=== PATIENT | male | born 1960 | race Caucasian/White ===

== ENCOUNTER 2018-09-25 18:32 | Observation (INO) | payer MEDICAID, MEDICARE, OTHER ==
[~2018-09-25] VITALS: Ht 177.8 cm; Wt 79.5 kg
[~2018-09-25 18:32] MED LIST: ALBU2.5V8 IH; ALBU2.5V8 INH; ASPI-482 PO; BENZ2AMP4 IJ; CICL6.1H3 IH; DIVA250T4 PO; DIVA500T2 PO; FURO-68 PO; MIRT30TA PO; MONT10TA9 PO; NITR0.4T SL; PANT40TA3 PO; POTA20TA12 PO; SIME80TA14 PO; SIMV10TA PO; [UNRECOGNIZED DRUG - CODE] IM
[2018-09-25 19:01] LABS: BASO % 1 % (0-3); EOS # 0.1 x10^3/uL (0.0-0.7); EOS % 1 % (0-3); HEMATOCRIT 42.4 % (39.0-53.0); HEMOGLOBIN 13.9 g/dL (13.0-17.5); LYMPH # 1.9 x10^3/uL (1.0-4.8); LYMPH % 28 % (24-48); MEAN CORPUSCULAR HEMOGLOBIN 30 pg (25-35); MEAN CORPUSCULAR HGB CONC 33 g/dL (31-37); MEAN CORPUSCULAR VOLUME 90 fL (79-100); MONO # 0.6 x10^3/uL (0.0-1.1); MONO % 8 % (0-9); NEUT # 4.3 x10^3uL (1.8-7.7); NEUT % 62 % (31-73); PLATELET COUNT 132 x10^3/uL (140-400); RED BLOOD COUNT 4.71 x10^6/uL (4.30-5.70); RED CELL DISTRIBUTION WIDTH 14.9 % (11.5-14.5); WHITE BLOOD COUNT 6.9 x10^3/uL (4.0-11.0)
--- NOTE | 2018-09-25 19:09 | PHYS DOC ---
Past Medical History Past Medical History: CAD, Seizure Additional Past Medical Histor: "blood clots" Past Surgical History: Appendectomy Additional Past Surgical Histo: AVM, IVC filter, right lower extremity vascular procedure performed at Alcohol Use: None Drug Use: None Adult General Chief Complaint Chief Complaint: CHEST PAIN HPI HPI Patient is a 57 year old male who presents with chest pain that started at approximately 3:00 this afternoon. Radiates into his left shoulder. This is similar to his chest discomfort when he had previous heart attack in 2006. There has been no nausea or vomiting, no diaphoresis. Patient was given aspirin and nitroglycerin prior to arrival which did improve his pain. Patient also notes that he has a [place] filter but no prior cardiac stent. There is no respirophasic component to this discomfort. Patient reports is both sharp and burning in nature, at worst severe, currently mild in intensity. Nothing seems to make the discomfort worse. Patient did not walk since the onset of pain to see if there was any worsening with exertion.[] Review of Systems Review of Systems Constitutional: Denies fever or chills [] Eyes: Denies change in visual acuity, redness, or eye pain [] HENT: Denies nasal congestion or sore throat [] Respiratory: Denies cough or shortness of breath [] Cardiovascular: No additional information not addressed in HPI [] GI: Denies abdominal pain, nausea, vomiting, bloody stools or diarrhea [] : Denies dysuria or hematuria [] Musculoskeletal: Denies back pain or joint pain [] Integument: Denies rash or skin lesions [] Neurologic: Denies headache, focal weakness or sensory changes [] Endocrine: Denies polyuria or polydipsia [] All other systems were reviewed and found to be within normal limits, except as documented in this note. Current Medications Current Medications Current Medications Medications (Trade) Dose Ordered Sig/Dixie Start Time Stop Time Status Last Admin Dose Admin Nitroglycerin (Nitro-Bid Oint) 0.5 inch 1X ONCE 09/25/18 19:30 09/25/18 19:31 DC 09/25/18 19:27 0.5 INCH Allergies Allergies Allergies Coded Allergies Type Severity Reaction Last Updated Verified Penicillins Allergy Intermediate 08/18/15 Yes methadone Allergy Intermediate 08/18/15 Yes morphine Allergy Intermediate 08/18/15 Yes sulfamethoxazole Allergy Intermediate 08/18/15 Yes trimethadione Allergy Intermediate 08/18/15 Yes Physical Exam Physical Exam Constitutional: Well developed, well nourished, no acute distress, non-toxic appearance. [] HENT: Normocephalic, atraumatic, bilateral external ears normal, oropharynx moist, no oral exudates, nose normal. [] Eyes: PERRLA, EOMI, conjunctiva normal, no discharge. [] Neck: Normal range of motion, no tenderness, supple, no stridor. [] Cardiovascular:Heart rate regular rhythm, no murmur [] Lungs & Thorax: Bilateral breath sounds clear to auscultation [] Abdomen: Bowel sounds normal, soft, no tenderness, no masses, no pulsatile masses. [] Skin: Warm, dry, no erythema, no rash. [] Back: No tenderness, no CVA tenderness. [] Extremities: No tenderness, no cyanosis, no clubbing, ROM intact, no edema. Right leg is bandaged from recent vascular procedure performed at [facility][] Neurologic: Alert and oriented X 3, normal motor function, normal sensory function, no focal deficits noted. [] Psychologic: Affect normal, judgement normal, mood normal. [] Current Patient Data Vital Signs Vital Signs Date Time Temp Pulse Resp B/P (MAP) Pulse Ox O2 Delivery O2 Flow Rate FiO2 09/25/18 19:32 72 105/80 (88) 98 Room Air 09/25/18 18:32 98.1 16 98.1 Lab Values Laboratory Tests Test 09/25/18 18:40 White Blood Count 6.9 x10^3/uL (4.0-11.0) Red Blood Count 4.71 x10^6/uL (4.30-5.70) Hemoglobin 13.9 g/dL (13.0-17.5) Hematocrit 42.4 % (39.0-53.0) Mean Corpuscular Volume 90 fL (79-100) Mean Corpuscular Hemoglobin 30 pg (25-35) Mean Corpuscular Hemoglobin Concent 33 g/dL (31-37) Red Cell Distribution Width 14.9 % (11.5-14.5) H Platelet Count 132 x10^3/uL (140-400) L Neutrophils (%) (Auto) 62 % (31-73) Lymphocytes (%) (Auto) 28 % (24-48) Monocytes (%) (Auto) 8 % (0-9) Eosinophils (%) (Auto) 1 % (0-3) Basophils (%) (Auto) 1 % (0-3) Neutrophils # (Auto) 4.3 x10^3uL (1.8-7.7) Lymphocytes # (Auto) 1.9 x10^3/uL (1.0-4.8) Monocytes # (Auto) 0.6 x10^3/uL (0.0-1.1) Eosinophils # (Auto) 0.1 x10^3/uL (0.0-0.7) Basophils # (Auto) 0.0 x10^3/uL (0.0-0.2) Prothrombin Time 13.4 SEC (11.7-14.0) Prothrombin Time INR 1.1 (0.8-1.1) D-Dimer (Ginny) < 0.27 ug/mlFEU Sodium Level 139 mmol/L (136-145) Potassium Level 4.7 mmol/L (3.5-5.1) Chloride Level 103 mmol/L (98-107) Carbon Dioxide Level 27 mmol/L (21-32) Anion Gap 9 (6-14) Blood Urea Nitrogen 15 mg/dL (8-26) Creatinine 0.8 mg/dL (0.7-1.3) Estimated GFR (Cockcroft-Gault) 98.9 BUN/Creatinine Ratio 19 (6-20) Glucose Level 97 mg/dL (70-99) Calcium Level 8.6 mg/dL (8.5-10.1) Magnesium Level 1.7 mg/dL (1.8-2.4) L Total Bilirubin 0.2 mg/dL (0.2-1.0) Aspartate Amino Transferase (AST) 12 U/L (15-37) L Alanine Aminotransferase (ALT) 15 U/L (16-63) L Alkaline Phosphatase 61 U/L (46-116) Troponin I Quantitative < 0.017 ng/mL (0.000-0.055) EQ-Iaj-N-Type Natriuretic Peptide 24 pg/mL (0-124) Total Protein 6.0 g/dL (6.4-8.2) L Albumin 3.2 g/dL (3.4-5.0) L Albumin/Globulin Ratio 1.1 (1.0-1.7) Lipase 135 U/L (73-393) Laboratory Tests 09/25/18 18:40 Laboratory Tests 09/25/18 18:40 EKG EKG EKG shows a sinus rhythm at 71 bpm, normal axis, QTC of 378 ms, no ST elevations. No old EKG is available for comparison. This was interpreted by me at 1832[] Radiology/Procedures Radiology/Procedures Chest X-ray showed no infiltrate, no effusion, no pneumothorax[] Course & Med Decision Making Course & Med Decision Making Pertinent Labs and Imaging studies reviewed. (See chart for details) ED course: Patient arrived, was placed in bed, and tolerated exam well. He had nitroglycerin paste administered which improved his discomfort. Due to his history of previous coronary disease, consultation was made with hospitalist service for admission and they graciously accepted. Patient was admitted in improved condition. Findings were discussed with patient who voiced understanding. Medical decision making: Patient with a known history of coronary disease with chest pain, concerned about possibility of acute coronary syndrome. Patient does not have a STEMI. No evidence of pulmonary embolism given the normal d- dimer as well as previous history of Daisha filter by report. No evidence of pneumonia, pneumothorax, esophageal rupture, nor thoracic aneurysm dissection. He is being admitted for further evaluation and treatment.[] Dragon Disclaimer Dragon Disclaimer This electronic medical record was generated, in whole or in part, using a voice recognition dictation system. Departure Departure Impression: Primary Impression: Chest pain Disposition: ADMITTED INPATIENT Admitting Physician: Kia Posey Condition: IMPROVED Referrals: MOISÉS HOWELL (PCP) Problem Qualifiers Primary Impression: Chest pain Chest pain type: unspecified Qualified Codes: R07.9 - Chest pain, unspecified DEBI LAKHANI DO Sep 25, 2018 19:09
[2018-09-25 19:10] LABS: PROTHROMBIN TIME PATIENT 13.4 SEC (11.7-14.0)
[2018-09-25 19:14] LABS: CALCIUM 8.6 mg/dL (8.5-10.1); CREATININE 0.8 mg/dL (0.7-1.3); GFR 98.9; POTASSIUM 4.7 mmol/L (3.5-5.1)
[2018-09-25] MEDS ORDERED: NITROGLYCERIN OINT 1 GM PACKET. TP ONE ×2 (19:15→19:30)
[2018-09-25 19:20] LABS: ALBUMIN 3.2 g/dL (3.4-5.0); ALBUMIN/GLOBULIN RATIO 1.1 (1.0-1.7); MAGNESIUM 1.7 mg/dL (1.8-2.4); TOTAL BILIRUBIN 0.2 mg/dL (0.2-1.0)
[2018-09-25] MEDS ORDERED: ACETAMINOPHEN 325 MG TABLET. PO PRN (20:30)
[2018-09-25] MEDS ORDERED: ONDANSETRON PF 4 MG/2 ML VIAL. IV PRN (20:30)
[2018-09-25] MEDS ORDERED: NITROGLYCERIN SUBLINGUAL 0.4 MG BOTTLE OF 25. SL PRN ×2 (20:30→22:30)
[2018-09-25 21:50] VITALS: BP 133/72
[2018-09-25] MEDS ORDERED: ATOR40TA59 PO (22:17)
[2018-09-25] MEDS ORDERED: LEVO75TA5 PO (22:17)
[2018-09-25] MEDS ORDERED: DIVA-53 PO (22:17)
[2018-09-25] MEDS ORDERED: HALO5SYR IM (22:17)
[2018-09-25] MEDS ORDERED: MIRT45TA58 PO (22:17)
[2018-09-25 22:40] VITALS: BP 106/73
[2018-09-25] MEDS ORDERED: DIVALPROEX DELAYED RELEASE 500 MG TABLET.DR. PO ONE (22:45)
[2018-09-25] MEDS ORDERED: MIRTAZAPINE 15 MG TABLET PO ONE (22:45)
[2018-09-25] MEDS ORDERED: MIRTAZAPINE 15 MG TABLET PO SCH (23:00)
[2018-09-25] MEDS ORDERED: BENZTROPINE MESYLATE 1 MG TABLET. PO ONE (23:00)
[2018-09-25] MEDS ORDERED: ATORVASTATIN CALCIUM 40 MG TABLET. PO ONE (23:00)
[2018-09-25] MEDS: DIVALPROEX DELAYED RELEASE 500 MG TABLET.DR. PO SCH (23:09)
[2018-09-25] MEDS: IV NORMAL SALINE 1000ML BAG 1,000 ML IV SCH (23:11)
[2018-09-26] VITALS (14 sets, daily range): BP systolic 102–135; BP diastolic 69–92
--- NOTE | 2018-09-26 00:12 | RAD ---
EXAM: AP View of the chest DATE: 09/25/2018 7:18 PM INDICATION: MIDSTERNAL CHEST PAIN X1 DAY COMPARISON: No Prior FINDINGS: The heart is not enlarged. Mediastinal and hilar contours are normal. No focal parenchymal airspace opacity. No pleural effusion or pneumothorax. IMPRESSION: No evidence for acute cardiac pulmonary process. Electronically signed by: Sergio Marshall MD (09/26/2018 12:09 AM) [facility]
--- NOTE | 2018-09-26 05:14 | EKG ---
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
--- NOTE | 2018-09-26 05:18 | EKG ---
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
--- NOTE | 2018-09-26 05:19 | EKG ---
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
[2018-09-26] MEDS ORDERED: LEVOTHYROXINE 75 MCG TABLET PO SCH (06:00)
[2018-09-26] MEDS ORDERED: PANTOPRAZOLE 40 MG TABLET.DR. PO SCH (07:30)
[2018-09-26] MEDS ORDERED: ASPIRIN ENTERIC COATED 81 MG TABLET.DR. PO SCH (08:00)
[2018-09-26] MEDS: IV NORMAL SALINE 1000ML BAG 1,000 ML IV SCH ×2 (08:03→12:16)
[2018-09-26] MEDS: DIVALPROEX DELAYED RELEASE 500 MG TABLET.DR. PO SCH ×2 (08:04→15:44)
[2018-09-26 08:16] LABS: CALCIUM 8.7 mg/dL (8.5-10.1); CREATININE 0.7 mg/dL (0.7-1.3); GFR 115.4; POTASSIUM 4.4 mmol/L (3.5-5.1)
[2018-09-26 08:21] LABS: CHOLESTEROL/HDL RATIO 2.7
--- NOTE | 2018-09-26 08:21 | PDOC2 ---
[facility] 09/26/18 0821: CARDIAC CONSULT DATE OF CONSULT Date of Consult DATE: 09/26/18 TIME: 08:14 REASON FOR CONSULT Reason for Consult: Chest pain , Hx of CAD REFERRING PHYSICIAN Referring Physician: Dameon SOURCE Source: Chart review, Patient HISTORY OF PRESENT ILLNESS HISTORY OF PRESENT ILLNESS This is a pleasant 57 yo male admitted for complains of chest pain. Described it as midchest pressure radiating with heviness to left arm. Also with some SOA and mild diaphoresis but no palpiations nor nausea or vomiting. No recent injuries or altercations in the correctional facility. No hx of PUD. This occurred while he was getting coffee and it was unrelenting initially promting a total of 6 NTG in the span of 8 hours and currently CP free with NTG paste in place. He does have CAD and was told with his [facility] in 2006 that he has 40% blockage on one of his vessel nothing to xi. His last stress test was 3 yrs ago. 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) Pulmonary: COPD, Other ("blood clots") CENTRAL NERVOUS SYSTEM: CVA, Seizure GI: GERD Heme/Onc: No pertinent hx Hepatobiliary: No pertinent hx Psych: Schizophrenia Musculoskeletal: Osteoarthritis Rheumatologic: No pertinent hx Infectious disease: No pertinent hx ENT: No pertinent hx Renal/: No pertinent hx Endocrine: Hypothyroidism Dermatology: No pertinent hx PAST SURGICAL HISTORY Past Surgical History: Appendectomy, Other (IVC filter placement) FAMILY HISTORY Family History: Coronary Artery Disease (father) SOCIAL HISTORY Smoke: Quit ALCOHOL: none Drugs: None Lives: Alone (correctional facility) CURRENT MEDICATIONS CURRENT MEDICATIONS Current Medications Medications (Trade) Dose Ordered Sig/Dixie Route PRN Reason Start Time Stop Time Status Last Admin Dose Admin Nitroglycerin (Nitro-Bid Oint) 0.5 inch 1X ONCE TP 09/25/18 19:30 09/25/18 19:31 DC 09/25/18 19:27 Sodium Chloride 1,000 ml @ 125 mls/hr Q8H IV 09/25/18 20:16 09/26/18 20:15 09/26/18 08:03 Aspirin (Ecotrin) 81 mg DAILYWBKFT PO 09/26/18 08:00 09/26/18 08:03 Levothyroxine Sodium (Synthroid) 75 mcg DAILY06 PO 3/26/19 06:00 09/26/18 06:07 Nitroglycerin (Nitrostat) 0.4 mg PRN Q5MIN PRN SL CHEST PAIN 09/25/18 22:30 09/26/18 03:17 Pantoprazole Sodium (Protonix) 40 mg DAILYAC PO 09/26/18 07:30 09/26/18 08:03 Divalproex Sodium (Depakote) 500 mg TID PO 09/25/18 23:00 09/26/18 08:04 Mirtazapine (Remeron) 45 mg QHS PO 09/25/18 23:00 09/25/18 23:10 Montelukast Sodium (Singulair) 10 mg DAILY PO 09/26/18 09:00 09/26/18 08:04 Atorvastatin Calcium (Lipitor) 40 mg 1X ONCE PO 09/25/18 23:00 09/25/18 23:01 DC 09/25/18 23:09 Benztropine Mesylate (Cogentin) 1 mg 1X ONCE PO 09/25/18 23:00 09/25/18 23:01 DC 09/25/18 23:08 ALLERGIES ALLERGIES: Coded Allergies: Penicillins (Verified Allergy, Intermediate, 08/18/15) methadone (Verified Allergy, Intermediate, 08/18/15) morphine (Verified Allergy, Intermediate, 08/18/15) sulfamethoxazole (Verified Allergy, Intermediate, 08/18/15) trimethadione (Verified Allergy, Intermediate, 08/18/15) ROS Review of System 14 point ROS evlauated with pertinent positives noted per HPI PHYSICAL EXAM General: Alert, Oriented X3, Cooperative, No acute distress HEENT: Atraumatic, Mucous membr. moist/pink Lungs: Clear to auscultation, Normal air movement Heart: Regular rate (SR), Normal S1, Normal S2, No murmurs Abdomen: Soft, No tenderness Extremities: No cyanosis, Other (Trace LE edema to bilateral LE ) Skin: No breakdown, No significant lesion Neuro: Normal speech, Sensation intact Psych/Mental Status: Mental status NL, Mood NL MUSCULOSKELETAL: Osteoarthritic changes both hands VITALS VITALS Vital Signs Date Time Temp Pulse Resp B/P (MAP) Pulse Ox O2 Delivery O2 Flow Rate FiO2 09/26/18 07:00 98.0 72 18 133/92 (106) 96 Room Air 98.0 LABS Lab: Laboratory Tests Test 09/25/18 18:40 09/26/18 00:15 09/26/18 06:30 White Blood Count 6.9 x10^3/uL (4.0-11.0) Red Blood Count 4.71 x10^6/uL (4.30-5.70) Hemoglobin 13.9 g/dL (13.0-17.5) Hematocrit 42.4 % (39.0-53.0) Mean Corpuscular Volume 90 fL (79-100) Mean Corpuscular Hemoglobin 30 pg (25-35) Mean Corpuscular Hemoglobin Concent 33 g/dL (31-37) Red Cell Distribution Width 14.9 % (11.5-14.5) Platelet Count 132 x10^3/uL (140-400) Neutrophils (%) (Auto) 62 % (31-73) Lymphocytes (%) (Auto) 28 % (24-48) Monocytes (%) (Auto) 8 % (0-9) Eosinophils (%) (Auto) 1 % (0-3) Basophils (%) (Auto) 1 % (0-3) Neutrophils # (Auto) 4.3 x10^3uL (1.8-7.7) Lymphocytes # (Auto) 1.9 x10^3/uL (1.0-4.8) Monocytes # (Auto) 0.6 x10^3/uL (0.0-1.1) Eosinophils # (Auto) 0.1 x10^3/uL (0.0-0.7) Basophils # (Auto) 0.0 x10^3/uL (0.0-0.2) Prothrombin Time 13.4 SEC (11.7-14.0) Prothromb Time International Ratio 1.1 (0.8-1.1) D-Dimer (Ginny) < 0.27 ug/mlFEU Sodium Level 139 mmol/L (136-145) Potassium Level 4.7 mmol/L (3.5-5.1) Chloride Level 103 mmol/L (98-107) Carbon Dioxide Level 27 mmol/L (21-32) Anion Gap 9 (6-14) Blood Urea Nitrogen 15 mg/dL (8-26) Creatinine 0.8 mg/dL (0.7-1.3) Estimated GFR (Cockcroft-Gault) 98.9 BUN/Creatinine Ratio 19 (6-20) Glucose Level 97 mg/dL (70-99) Calcium Level 8.6 mg/dL (8.5-10.1) Magnesium Level 1.7 mg/dL (1.8-2.4) Total Bilirubin 0.2 mg/dL (0.2-1.0) Aspartate Amino Transf (AST/SGOT) 12 U/L (15-37) Alanine Aminotransferase (ALT/SGPT) 15 U/L (16-63) Alkaline Phosphatase 61 U/L (46-116) Troponin I Quantitative < 0.017 ng/mL (0.000-0.055) < 0.017 ng/mL (0.000-0.055) < 0.017 ng/mL (0.000-0.055) MG-Lmh-Q-Type Natriuretic Peptide 24 pg/mL (0-124) Total Protein 6.0 g/dL (6.4-8.2) Albumin 3.2 g/dL (3.4-5.0) Albumin/Globulin Ratio 1.1 (1.0-1.7) Lipase 135 U/L (73-393) ASSESSMENT/PLAN ASSESSMENT/PLAN 1. Chest pain: UA features 2. Recent AVM repair to RLE: early september at [facility] 3. Hx of CAD/CVA 4. Hx of seizures: has not had any in a while. 5. Hx of DVT with IVC filter (still in placed in 2006) 6. HTN; controlled 7. HLP Recommendations TTE,lipids LHC today, risks and benefits discussed and agreebale to proceed. ASA, statin LESLY LAINEZ MD 09/26/18 1237: CARDIAC CONSULT ASSESSMENT/PLAN ASSESSMENT/PLAN Pt. seen and examined. Agree with above [employer] note. Plan for LHC today given unstable angina. ARCHANA MARIN APRN Sep 26, 2018 08:21 LESLY LAINEZ MD Sep 26, 2018 12:37
[2018-09-26] MEDS ORDERED: MONTELUKAST SODIUM 10 MG TABLET. PO SCH (09:00)
--- NOTE | 2018-09-26 09:10 | EKG ---
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
--- NOTE | 2018-09-26 11:02 | PDOC1 ---
History and Physical Date of Admission Date of Admission DATE: 09/26/18 TIME: 11:02 Identification/Chief Complaint Chief Complaint seen in er with severe chest pain that started at approximately 3:00 09/25 Radiates into his left shoulder. This is similar to his chest discomfort when he had previous heart attack in 2006. There has been no nausea or vomiting, no diaphoresis. Patient was given aspirin and nitroglycerin prior to arrival which did improve his pain. Patient also notes that he has a Daisha filter but no prior cardiac stent. There is no respirophasic component to this discomfort. Patient reports is both sharp and burning in nature, at worst severe History of Present Illness History of Present Illness Heart Failure Heart Failure: No If Yes, Newly Diagnosed: No PROCEDURE NARRATIVE INFORMED CONSENT: After explaining the risks and benefits of the procedure and alternatives, informed consent was obtained. The patient was brought electively to the cardiac catheterization lab. A timeout was performed confirming the patient's name, date of , procedure, and site of procedure. All necessary personnel were wearing the appropriate protective equipment and radiation monitor devices. (See nursing notes for medications administered). ACCESS: The right wrist was sterilely prepped and draped in the usual fashion. The right wrist was infiltrated with 1 mL of 2% lidocaine for subcutaneous anesthesia. A 6 Jordanian Terumo glide sheath was inserted into the right radial artery without difficulty. CORONARY ANGIOGRAPHY: Right and left coronary angiography was performed using a 6Fr TIG 4.0 catheter. Left ventricular end diastolic pressure was obtained with a pigtail catheter and pullback was performed after left ventriculography. All catheter exchanges and advancements were performed over a guidewire. CLOSURE: At case completion the right radial sheath was removed and a Terumo radial band was applied with 13 ml of air. COMPLICATIONS: The patient tolerated the procedure well and there were no immediate complications. FINDINGS: HEMODYNAMICS: LVEDP 10 mm Hg No gradient on LV to aortic pullback. AO: 128/78 LEFT VENTRICULOGRAM: EF 55% Anterobasal: Normal. Anterolateral: Normal Apical: Normal Diaphragmatic: Normal Posterobasal: Normal CORONARY ANGIOGRAPHY: LM is a large caliber vessel with normal angiographic appearance. LAD is a moderate caliber vessel with mild luminal irregularities of up to 20%. LCx is a moderate caliber non-dominant vessel with normal angiographic appearance. OM1 is a moderate caliber vessel with normal angiographic appearance. RCA is a large caliber dominant vessel with normal angiographic appearance. RPDA and RPL are moderate caliber vessels with normal angiographic appearance. Conclusion 1. Normal left sided filling pressures. 2. Normal LV systolic function. EF 55% 3. No significant coronary disease. 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) Pulmonary: COPD, Other ("blood clots") CENTRAL NERVOUS SYSTEM: CVA, Seizure GI: GERD Heme/Onc: No pertinent hx Hepatobiliary: No pertinent hx Psych: Schizophrenia Musculoskeletal: Osteoarthritis Rheumatologic: No pertinent hx Infectious disease: No pertinent hx ENT: No pertinent hx Renal/: No pertinent hx Endocrine: Hypothyroidism Dermatology: No pertinent hx Past Surgical History Past Surgical History: Appendectomy, Other (IVC filter placement) Family History Family History: Coronary Artery Disease (father) Social History Smoke: No ALCOHOL: none Drugs: None Current Medications Current Medications Current Medications Nitroglycerin (Nitro-Bid Oint) 1 inch 1X ONCE TP ; Start 09/25/18 at 19:15; Stop 09/25/18 at 19:24; Status DC Nitroglycerin (Nitro-Bid Oint) 0.5 inch 1X ONCE TP Last administered on at 19:27; Start 09/25/18 at 19:30; Stop 09/25/18 at 19:31; Status DC Ondansetron HCl (Zofran) 4 mg PRN Q8HRS PRN IV NAUSEA/VOMITING; Start 09/25/18 at 20:30; Stop 09/26/18 at 20:29 Sodium Chloride 1,000 ml @ 125 mls/hr Q8H IV Last administered on 09/26/18at 08 :03; Start 09/25/18 at 20:16; Stop 09/26/18 at 20:15 Acetaminophen (Tylenol) 650 mg PRN Q4HRS PRN PO FEVER; Start 09/25/18 at 20:30 ; Stop 09/26/18 at 20:29 Nitroglycerin (Nitrostat) 0.4 mg PRN Q5MIN PRN SL CHEST PAIN; Start 09/25/18 at 20:30; Stop 09/25/18 at 22:36; Status DC Aspirin (Ecotrin) 81 mg DAILYWBKFT PO Last administered on 09/26/18at 08:03; Start 09/26/18 at 08:00 Atorvastatin Calcium (Lipitor) 40 mg HS PO ; Start 09/26/18 at 21:00 Levothyroxine Sodium (Synthroid) 75 mcg DAILY06 PO Last administered on at 06:07; Start 09/26/18 at 06:00 Nitroglycerin (Nitrostat) 0.4 mg PRN Q5MIN PRN SL CHEST PAIN Last administered on 09/26/18at 03:17; Start 09/25/18 at 22:30 Pantoprazole Sodium (Protonix) 40 mg DAILYAC PO Last administered on 09/26/18at 08:03; Start 09/26/18 at 07:30 Divalproex Sodium (Depakote) 500 mg TID PO Last administered on 09/26/18at 08:04 ; Start 09/25/18 at 23:00 Haloperidol Lactate (Haldol Inj) 75 mg Q4WK IM ; Start 10/23/18 at 09:00 Mirtazapine (Remeron) 45 mg QHS PO Last administered on 09/25/18at 23:10; Start 09/25/18 at 23:00 Montelukast Sodium (Singulair) 10 mg DAILY PO Last administered on 09/26/18at 08 :04; Start 09/26/18 at 09:00 Divalproex Sodium (Depakote) 500 mg 1X ONCE PO ; Start 09/25/18 at 22:45; Stop 09/25/18 at 22:46; Status UNV Mirtazapine (Remeron) 45 mg 1X ONCE PO ; Start 09/25/18 at 22:45; Stop at 22:46; Status UNV Atorvastatin Calcium (Lipitor) 40 mg 1X ONCE PO Last administered on at 23:09; Start 09/25/18 at 23:00; Stop 09/25/18 at 23:01; Status DC Benztropine Mesylate (Cogentin) 1 mg 1X ONCE PO Last administered on at 23:08; Start 09/25/18 at 23:00; Stop 09/25/18 at 23:01; Status DC Active Scripts Active Reported Mirtazapine 45 Mg Tablet 1 Tab PO QHS Levothyroxine Sodium 75 Mcg Tablet 1 Tab PO DAILY Haloperidol Lactate 5 Mg/1 Ml Syringe 75 Mg IM Q4WK Divalproex Sodium 500 Mg Tablet.dr 1 Tab PO TID Atorvastatin Calcium 40 Mg Tablet 1 Tab PO DAILY Montelukast Sodium Tablet (Montelukast Sodium) 10 Mg Tablet 1 Tab PO DAILY Protonix (Pantoprazole Sodium) 40 Mg Tablet.dr 40 Mg PO DAILY Nitrostat (Nitroglycerin) 0.4 Mg Tab.subl 0.4 Mg SL PRN Q5MIN PRN Aspir 81 (Aspirin) 81 Mg Tablet.dr 81 Tab PO DAILY Alvesco (Ciclesonide) 6.1 Gm Hfa.aer.ad 6.1 Gm IH Proair Hfa Inhaler (Albuterol Sulfate) 8.5 Gm Hfa.aer.ad 1 Puff INH PRN Q6HRS PRN Proair Hfa Inhaler (Albuterol Sulfate) 8.5 Gm Hfa.aer.ad 2 Puff IH PRN Q4-6HRS Allergies Allergies: Coded Allergies: Penicillins (Verified Allergy, Intermediate, 08/18/15) methadone (Verified Allergy, Intermediate, 08/18/15) morphine (Verified Allergy, Intermediate, 08/18/15) sulfamethoxazole (Verified Allergy, Intermediate, 08/18/15) trimethadione (Verified Allergy, Intermediate, 08/18/15) ROS Review of System Review of Systems Review of Systems Constitutional: Denies fever or chills [] Eyes: Denies change in visual acuity, redness, or eye pain [] HENT: Denies nasal congestion or sore throat [] Respiratory: Denies cough or shortness of breath [] Cardiovascular: No additional information not addressed in HPI [] GI: Denies abdominal pain, nausea, vomiting, bloody stools or diarrhea [] : Denies dysuria or hematuria [] Musculoskeletal: Denies back pain or joint pain [] Integument: Denies rash or skin lesions [] Neurologic: Denies headache, focal weakness or sensory changes [] Endocrine: Denies polyuria or polydipsia [] 14 pt systems were reviewed and found to be within normal limits, except as documented . PSYCHOLOGICAL ROS: YES: Irritablity Gastrointestinal: No Nausea, No Vomiting, No Abdominal Pain, No Diarrhea, No Constipation, No Melena, No Hematochezia, No Other Neurological: No Behavorial Changes, No Bowel/Bladder ControlChng, No Confusion , No Dizziness, No Gait Disturbance, No Headaches, No Impaired Coord/balance, No Memory Loss, No Numbness/Tingling, No Seizures, No Speech Problems, No Tremors, No Visual Changes, No Weakness, No Other Physical Exam Physical Exam Physical Exam Physical Exam Constitutional: Well developed, well nourished, no acute distress, non-toxic appearance. [] HENT: Normocephalic, atraumatic, bilateral external ears normal, oropharynx moist, no oral exudates, nose normal. [] Eyes: PERRLA, EOMI, conjunctiva normal, no discharge. [] Neck: Normal range of motion, no tenderness, supple, no stridor. [] Cardiovascular:Heart rate regular rhythm, no murmur [] Lungs & Thorax: Bilateral breath sounds clear to auscultation [] Abdomen: Bowel sounds normal, soft, no tenderness, no masses, no pulsatile masses. [] Skin: Warm, dry, no erythema, no rash. [] Back: No tenderness, no CVA tenderness. [] Extremities: No tenderness, no cyanosis, no clubbing, ROM intact, no edema. Right leg is bandaged from recent vascular procedure performed at [] Neurologic: Alert and oriented X 3, normal motor function, normal sensory function, no focal deficits noted. [] Psychologic: Affect normal, judgement normal, mood normal. [] General: Alert, Oriented X3, Cooperative HEENT: Atraumatic Lungs: Clear to auscultation Heart: RRR Abdomen: Soft Vitals Vitals Vital Signs Date Time Temp Pulse Resp B/P (MAP) Pulse Ox O2 Delivery O2 Flow Rate FiO2 09/26/18 08:00 Room Air 09/26/18 07:00 98.0 72 18 133/92 (106) 96 98.0 Labs Labs Laboratory Tests Test 09/25/18 18:40 09/26/18 00:15 09/26/18 06:30 White Blood Count 6.9 x10^3/uL (4.0-11.0) Red Blood Count 4.71 x10^6/uL (4.30-5.70) Hemoglobin 13.9 g/dL (13.0-17.5) Hematocrit 42.4 % (39.0-53.0) Mean Corpuscular Volume 90 fL (79-100) Mean Corpuscular Hemoglobin 30 pg (25-35) Mean Corpuscular Hemoglobin Concent 33 g/dL (31-37) Red Cell Distribution Width 14.9 % (11.5-14.5) Platelet Count 132 x10^3/uL (140-400) Neutrophils (%) (Auto) 62 % (31-73) Lymphocytes (%) (Auto) 28 % (24-48) Monocytes (%) (Auto) 8 % (0-9) Eosinophils (%) (Auto) 1 % (0-3) Basophils (%) (Auto) 1 % (0-3) Neutrophils # (Auto) 4.3 x10^3uL (1.8-7.7) Lymphocytes # (Auto) 1.9 x10^3/uL (1.0-4.8) Monocytes # (Auto) 0.6 x10^3/uL (0.0-1.1) Eosinophils # (Auto) 0.1 x10^3/uL (0.0-0.7) Basophils # (Auto) 0.0 x10^3/uL (0.0-0.2) Prothrombin Time 13.4 SEC (11.7-14.0) Prothromb Time International Ratio 1.1 (0.8-1.1) D-Dimer (Ginny) < 0.27 ug/mlFEU Sodium Level 139 mmol/L (136-145) 145 mmol/L (136-145) Potassium Level 4.7 mmol/L (3.5-5.1) 4.4 mmol/L (3.5-5.1) Chloride Level 103 mmol/L (98-107) 109 mmol/L (98-107) Carbon Dioxide Level 27 mmol/L (21-32) 25 mmol/L (21-32) Anion Gap 9 (6-14) 11 (6-14) Blood Urea Nitrogen 15 mg/dL (8-26) 11 mg/dL (8-26) Creatinine 0.8 mg/dL (0.7-1.3) 0.7 mg/dL (0.7-1.3) Estimated GFR (Cockcroft-Gault) 98.9 115.4 BUN/Creatinine Ratio 19 (6-20) Glucose Level 97 mg/dL (70-99) 101 mg/dL (70-99) Calcium Level 8.6 mg/dL (8.5-10.1) 8.7 mg/dL (8.5-10.1) Magnesium Level 1.7 mg/dL (1.8-2.4) 2.0 mg/dL (1.8-2.4) Total Bilirubin 0.2 mg/dL (0.2-1.0) Aspartate Amino Transf (AST/SGOT) 12 U/L (15-37) Alanine Aminotransferase (ALT/SGPT) 15 U/L (16-63) Alkaline Phosphatase 61 U/L (46-116) Troponin I Quantitative < 0.017 ng/mL (0.000-0.055) < 0.017 ng/mL (0.000-0.055) < 0.017 ng/mL (0.000-0.055) WC-Sdb-Y-Type Natriuretic Peptide 24 pg/mL (0-124) Total Protein 6.0 g/dL (6.4-8.2) Albumin 3.2 g/dL (3.4-5.0) Albumin/Globulin Ratio 1.1 (1.0-1.7) Lipase 135 U/L (73-393) Triglycerides Level 48 mg/dL (0-150) Cholesterol Level 135 mg/dL (0-200) LDL Cholesterol, Calculated 75 mg/dL (0-100) VLDL Cholesterol, Calculated 10 mg/dL (0-40) Non-HDL Cholesterol Calculated 85 mg/dL (0-129) HDL Cholesterol 50 mg/dL (40-60) Cholesterol/HDL Ratio 2.7 Laboratory Tests Test 09/25/18 18:40 09/26/18 00:15 09/26/18 06:30 White Blood Count 6.9 x10^3/uL (4.0-11.0) Red Blood Count 4.71 x10^6/uL (4.30-5.70) Hemoglobin 13.9 g/dL (13.0-17.5) Hematocrit 42.4 % (39.0-53.0) Mean Corpuscular Volume 90 fL (79-100) Mean Corpuscular Hemoglobin 30 pg (25-35) Mean Corpuscular Hemoglobin Concent 33 g/dL (31-37) Red Cell Distribution Width 14.9 % (11.5-14.5) Platelet Count 132 x10^3/uL (140-400) Neutrophils (%) (Auto) 62 % (31-73) Lymphocytes (%) (Auto) 28 % (24-48) Monocytes (%) (Auto) 8 % (0-9) Eosinophils (%) (Auto) 1 % (0-3) Basophils (%) (Auto) 1 % (0-3) Neutrophils # (Auto) 4.3 x10^3uL (1.8-7.7) Lymphocytes # (Auto) 1.9 x10^3/uL (1.0-4.8) Monocytes # (Auto) 0.6 x10^3/uL (0.0-1.1) Eosinophils # (Auto) 0.1 x10^3/uL (0.0-0.7) Basophils # (Auto) 0.0 x10^3/uL (0.0-0.2) Prothrombin Time 13.4 SEC (11.7-14.0) Prothromb Time International Ratio 1.1 (0.8-1.1) D-Dimer (Ginny) < 0.27 ug/mlFEU Sodium Level 139 mmol/L (136-145) 145 mmol/L (136-145) Potassium Level 4.7 mmol/L (3.5-5.1) 4.4 mmol/L (3.5-5.1) Chloride Level 103 mmol/L (98-107) 109 mmol/L (98-107) Carbon Dioxide Level 27 mmol/L (21-32) 25 mmol/L (21-32) Anion Gap 9 (6-14) 11 (6-14) Blood Urea Nitrogen 15 mg/dL (8-26) 11 mg/dL (8-26) Creatinine 0.8 mg/dL (0.7-1.3) 0.7 mg/dL (0.7-1.3) Estimated GFR (Cockcroft-Gault) 98.9 115.4 BUN/Creatinine Ratio 19 (6-20) Glucose Level 97 mg/dL (70-99) 101 mg/dL (70-99) Calcium Level 8.6 mg/dL (8.5-10.1) 8.7 mg/dL (8.5-10.1) Magnesium Level 1.7 mg/dL (1.8-2.4) 2.0 mg/dL (1.8-2.4) Total Bilirubin 0.2 mg/dL (0.2-1.0) Aspartate Amino Transf (AST/SGOT) 12 U/L (15-37) Alanine Aminotransferase (ALT/SGPT) 15 U/L (16-63) Alkaline Phosphatase 61 U/L (46-116) Troponin I Quantitative < 0.017 ng/mL (0.000-0.055) < 0.017 ng/mL (0.000-0.055) < 0.017 ng/mL (0.000-0.055) IN-Oev-Q-Type Natriuretic Peptide 24 pg/mL (0-124) Total Protein 6.0 g/dL (6.4-8.2) Albumin 3.2 g/dL (3.4-5.0) Albumin/Globulin Ratio 1.1 (1.0-1.7) Lipase 135 U/L (73-393) Triglycerides Level 48 mg/dL (0-150) Cholesterol Level 135 mg/dL (0-200) LDL Cholesterol, Calculated 75 mg/dL (0-100) VLDL Cholesterol, Calculated 10 mg/dL (0-40) Non-HDL Cholesterol Calculated 85 mg/dL (0-129) HDL Cholesterol 50 mg/dL (40-60) Cholesterol/HDL Ratio 2.7 Images Images Heart Failure Heart Failure: No If Yes, Newly Diagnosed: No PROCEDURE NARRATIVE INFORMED CONSENT: After explaining the risks and benefits of the procedure and alternatives, informed consent was obtained. The patient was brought electively to the cardiac catheterization lab. A timeout was performed confirming the patient's name, date of , procedure, and site of procedure. All necessary personnel were wearing the appropriate protective equipment and radiation monitor devices. (See nursing notes for medications administered). ACCESS: The right wrist was sterilely prepped and draped in the usual fashion. The right wrist was infiltrated with 1 mL of 2% lidocaine for subcutaneous anesthesia. A 6 Jordanian Terumo glide sheath was inserted into the right radial artery without difficulty. CORONARY ANGIOGRAPHY: Right and left coronary angiography was performed using a 6Fr TIG 4.0 catheter. Left ventricular end diastolic pressure was obtained with a pigtail catheter and pullback was performed after left ventriculography. All catheter exchanges and advancements were performed over a guidewire. CLOSURE: At case completion the right radial sheath was removed and a Terumo radial band was applied with 13 ml of air. COMPLICATIONS: The patient tolerated the procedure well and there were no immediate complications. FINDINGS: HEMODYNAMICS: LVEDP 10 mm Hg No gradient on LV to aortic pullback. AO: 128/78 LEFT VENTRICULOGRAM: EF 55% Anterobasal: Normal. Anterolateral: Normal Apical: Normal Diaphragmatic: Normal Posterobasal: Normal CORONARY ANGIOGRAPHY: LM is a large caliber vessel with normal angiographic appearance. LAD is a moderate caliber vessel with mild luminal irregularities of up to 20%. LCx is a moderate caliber non-dominant vessel with normal angiographic appearance. OM1 is a moderate caliber vessel with normal angiographic appearance. RCA is a large caliber dominant vessel with normal angiographic appearance. RPDA and RPL are moderate caliber vessels with normal angiographic appearance. Conclusion 1. Normal left sided filling pressures. 2. Normal LV systolic function. EF 55% 3. No significant coronary disease. Recommendations Aggressive Medical Therapy Signed by : Lesly Holcomb, Electronically Approved : 09/26/2018 14:58:37 DICTATED and SIGNED BY: LESLY HOLCOMB MD DATE: 09/26/18 1458 MTH0 0 MTF0 116 CC: ARCHANA MARIN APRN; LESLY HOLCOMB MD; MOISÉS HOWELL; DUSTY SMITH MD ~ Page of VTE Prophylaxis Ordered VTE Prophylaxis Devices: Yes VTE Pharmacological Prophylaxi: Yes Assessment/Plan Assessment/Plan impression chest pain, nl cath CORONARY ANGIOGRAPHY: LM is a large caliber vessel with normal angiographic appearance. LAD is a moderate caliber vessel with mild luminal irregularities of up to 20%. LCx is a moderate caliber non-dominant vessel with normal angiographic appearance. OM1 is a moderate caliber vessel with normal angiographic appearance. RCA is a large caliber dominant vessel with normal angiographic appearance. RPDA and RPL are moderate caliber vessels with normal angiographic appearance. d/c later today back to assisted 74 min exam, chart review, pt care> 50% of time with exam, chart review, pt care coordination RODRICK BURLESON MD Sep 26, 2018 11:02
[2018-09-26] MEDS ORDERED: LIDOCAINE 1% PF 2 ML VIAL. ONE (13:42)
[2018-09-26] MEDS ORDERED: MIDAZOLAM HCL/PF 2 MG/2 ML VIAL. ONE (13:47)
[2018-09-26] MEDS ORDERED: fentaNYL PF VIAL 100 MCG/2 ML VIAL ONE (13:47)
[2018-09-26] MEDS ORDERED: NITROGLYCERIN 200 MCG/2 ML SYRINGE FOR CATH/VASC LAB. ONE (13:47)
[2018-09-26] MEDS ORDERED: VERAPAMIL 5 MG/2 ML VIAL. ONE (13:47)
[2018-09-26] MEDS ORDERED: HEPARIN for IV BOLUS 10,000 UNIT/10 ML VIAL. ONE (13:47)
--- NOTE | 2018-09-26 14:27 | EKG ---
[facility] [address] [place] [address] Test Date: 2018-09-26 Test Time: 12:04:26 Pat Name: RODRICK PENDLETON Department: Room: 211 1 Gender: M Controlled Area Checker: BALJIT : 1960 Requested By: DUSTY SMITH Order Number: [id number] Reading MD: Fausto Holcomb MD Measurements Intervals [place] Rate: 71 P: 64 DE: 148 QRS: 65 QRSD: 90 T: 53 QT: 364 QTc: 400 Interpretive Statements SINUS RHYTHM NON-SPECIFIC ST/T CHANGES Electronically Signed On 09-28-2018 14:40:41 CDT by Fausto Holcomb MD
[2018-09-26] MEDS ORDERED: CONTRAST GIVEN. MC PRN (14:45)
[2018-09-26] MEDS ORDERED: NITROGLYCERIN 200 MCG/2 ML SYRINGE FOR CATH/VASC LAB. IART ONE (14:45)
[2018-09-26] MEDS ORDERED: fentaNYL PF VIAL 100 MCG/2 ML VIAL IV ONE (14:45)
[2018-09-26] MEDS ORDERED: VERAPAMIL 5 MG/2 ML VIAL. IART ONE (14:45)
[2018-09-26] MEDS ORDERED: HEPARIN for IV BOLUS 10,000 UNIT/10 ML VIAL. IART ONE (14:45)
[2018-09-26] MEDS ORDERED: IODIXANOL 320 MG/ML 100 ML VIAL. IART ONE (14:45)
[2018-09-26] MEDS ORDERED: MIDAZOLAM HCL/PF 2 MG/2 ML VIAL. IV ONE (14:45)
[2018-09-26] MEDS ORDERED: LIDOCAINE 1% PF 2 ML VIAL. INJ ONE (14:45)
--- NOTE | 2018-09-26 14:59 | CARD ---
MR#: [id number] Date of Study: 09/26/2018 Ordering Physician: ARCHANA MARIN, Referring Physician: DUSTY SMITH, Tech: Taylor Danielle RT (R) APPROVED REPORT Technologist: Taylor Danielle RT (R) Procedure(s) performed: moderate sedation: 20 MINUTES fluoro time:1.0 minutes dose: 28 Gycm2 contrast: 76 cc LHC, Coronary angiography, Left ventriculography HISTORY The patient is a 57 year-old male with a history of : hypertension, dyslipidemia. INDICATION The indication(s) include : unstable angina . CSHA Clinical Frailty Scale CS Clinical Frailty Scale: Managing Well Heart Failure Heart Failure: No If Yes, Newly Diagnosed: No PROCEDURE NARRATIVE INFORMED CONSENT: After explaining the risks and benefits of the procedure and alternatives, informed consent was obtained. The patient was brought electively to the cardiac catheterization lab. A timeout was performed confi rming the patient's name, date of , procedure, and site of procedure. All necessary personnel w ere wearing the appropriate protective equipment and radiation monitor devices. (See nursing notes for medications administered). ACCESS: The right wrist was sterilely prepped and draped in the usual fashion. The right wrist was infiltrat ed with 1 mL of 2% lidocaine for subcutaneous anesthesia. A 6 Thai Terumo glide sheath was inserte d into the right radial artery without difficulty. CORONARY ANGIOGRAPHY: Right and left coronary angiography was performed using a 6Fr TIG 4.0 catheter. Left ventricular en d diastolic pressure was obtained with a pigtail catheter and pullback was performed after left ventr iculography. All catheter exchanges and advancements were performed over a guidewire. CLOSURE: At case completion the right radial sheath was removed and a Terumo radial band was applied with 13 m l of air. COMPLICATIONS: The patient tolerated the procedure well and there were no immediate complications. FINDINGS: HEMODYNAMICS: LVEDP 10 mm Hg No gradient on LV to aortic pullback. AO: 128/78 LEFT VENTRICULOGRAM: EF 55% Anterobasal: Normal. Anterolateral: Normal Apical: Normal Diaphragmatic: Normal Posterobasal: Normal CORONARY ANGIOGRAPHY: LM is a large caliber vessel with normal angiographic appearance. LAD is a moderate caliber vessel with mild luminal irregularities of up to 20%. LCx is a moderate caliber non-dominant vessel with normal angiographic appearance. OM1 is a moderate caliber vessel with normal angiographic appearance. RCA is a large caliber dominant vessel with normal angiographic appearance. RPDA and RPL are moderate caliber vessels with normal angiographic appearance. Conclusion 1. Normal left sided filling pressures. 2. Normal LV systolic function. EF 55% 3. No significant coronary disease. Recommendations Aggressive Medical Therapy Signed by : Fausto Holcomb, Electronically Approved : 09/26/2018 14:58:37
--- NOTE | 2018-09-26 15:43 | CARD ---
MR#: [id number] Date of Study: 09/26/2018 Ordering Physician: ARCHANA MARIN, Referring Physician: DUSTY SMITH, Tech: China Snider APPROVED REPORT EXAM: Two-dimensional and M-mode echocardiogram with Doppler and color Doppler. Other Information Quality : GoodHR: 67bpm INDICATION CAD Chest Pain 2D DIMENSIONS RVDd2.3 (2.9-3.5cm)Left Atrium(2D)3.2 (1.6-4.0cm) IVSd0.8 (0.7-1.1cm)Aortic Root(2D)3.0 (2.0-3.7cm) LVDd5.0 (3.9-5.9cm)LVOT Diameter1.9 (1.8-2.4cm) PWd1.1 (0.7-1.1cm)LVDs2.8 (2.5-4.0cm) FS (%) 44.0 %SV89.6 ml LVEF(%)75.0 (>50%) Aortic Valve AoV Peak Nader.119.1cm/sAoV VTI22.2cm AO Peak GR.5.7mmHgLVOT VTI 16.08cm AO Mean GR.3mmHg Mitral Valve MV E Xhybdsek92.3cm/sMV DECEL [id number] MV A Ccyclmnc33.7cm/sE/A Ratio1.0 TDI Lateral E' P. V10.04cm/sMedial E' P. V7.47cm/s E/Lateral E'7.1E/Medial E'9.5 Pulmonary Vein S1 Lfgbiogf96.6cm/sS2 Ypwkgxza84.50cm/s D2 Llniyhxz98.5cm/sPVa [id number] LEFT VENTRICLE The left ventricle is normal size. There is normal left ventricular wall thickness. The left ventricu lar systolic function is normal. The Ejection Fraction is 55-60%. There is normal LV segmental wall m otion. The left ventricular diastolic function and filling is normal for age. RIGHT VENTRICLE The right ventricle is normal size. There is normal right ventricular wall thickness. The right ventr icular systolic function is normal. ATRIA The left atrium size is normal. The right atrium size is normal. The interatrial septum is intact wit h no evidence for an atrial septal defect or patent foramen ovale as noted on 2-D or Doppler imaging. AORTIC VALVE The aortic valve is normal in structure and function. Doppler and Color Flow revealed no significant aortic regurgitation. There is no significant aortic valvular stenosis. MITRAL VALVE The mitral valve is normal in structure and function. There is no evidence of mitral valve prolapse. There is no mitral valve stenosis. Doppler and Color Flow revealed no mitral valve regurgitation note d. TRICUSPID VALVE The tricuspid valve is normal in structure and function. Doppler and Color Flow revealed no tricuspid valve regurgitation noted. There is no tricuspid valve stenosis. PULMONIC VALVE The pulmonic valve is not well visualized. Doppler and Color Flow revealed no pulmonic valvular regur gitation. There is no pulmonic valvular stenosis. GREAT VESSELS The aortic root is normal in size. The IVC was not visualized. PERICARDIAL EFFUSION There is no evidence of significant pericardial effusion. Critical Notification Critical Value: No <Conclusion> The left ventricular systolic function is normal. The Ejection Fraction is 55-60%. There is normal LV segmental wall motion. No significant valvular abnormalities. There is no evidence of significant pericardial effusion. Signed by : Subhash Palomares, Electronically Approved : 09/26/2018 15:42:42
--- NOTE | 2018-09-26 16:41 | PDOC3 ---
Discharge Summary Date of Admission: Sep 25, 2018 Date of Discharge: Sep 26, 2018 Follow-Up: 1-2 days Admitting Diagnosis comment: VTE Prophylaxis Ordered VTE Prophylaxis Devices: Yes VTE Pharmacological Prophylaxi: Yes discharge dx Assessment/Plan impression chest pain, nl cath CORONARY ANGIOGRAPHY: LM is a large caliber vessel with normal angiographic appearance. LAD is a moderate caliber vessel with mild luminal irregularities of up to 20%. LCx is a moderate caliber non-dominant vessel with normal angiographic appearance. OM1 is a moderate caliber vessel with normal angiographic appearance. RCA is a large caliber dominant vessel with normal angiographic appearance. RPDA and RPL are moderate caliber vessels with normal angiographic appearance. d/c later today back to retirement 74 min exam, chart review, pt care> 50% of time with exam, chart review, pt care coordination RODRICK BURLESON MD Sep 26, 2018 11:02 Date of Admission Date of Admission DATE: 09/26/18 TIME: 11:02 Identification/Chief Complaint Chief Complaint seen in er with severe chest pain that started at approximately 3:00 09/25 Radiates into his left shoulder. This is similar to his chest discomfort when he had previous heart attack in 2006. There has been no nausea or vomiting, no diaphoresis. Patient was given aspirin and nitroglycerin prior to arrival which did improve his pain. Patient also notes that he has a [place] filter but no prior cardiac stent. There is no respirophasic component to this discomfort. Patient reports is both sharp and burning in nature, at worst severe History of Present Illness History of Present Illness Heart Failure Heart Failure: No If Yes, Newly Diagnosed: No PROCEDURE NARRATIVE INFORMED CONSENT: After explaining the risks and benefits of the procedure and alternatives, informed consent was obtained. The patient was brought electively to the cardiac catheterization lab. A timeout was performed confirming the patient's name, date of , procedure, and site of procedure. All necessary personnel were wearing the appropriate protective equipment and radiation monitor devices. (See nursing notes for medications administered). ACCESS: The right wrist was sterilely prepped and draped in the usual fashion. The right wrist was infiltrated with 1 mL of 2% lidocaine for subcutaneous anesthesia. A 6 [place] Terumo glide sheath was inserted into the right radial artery without difficulty. CORONARY ANGIOGRAPHY: Right and left coronary angiography was performed using a 6Fr TIG 4.0 catheter. Left ventricular end diastolic pressure was obtained with a pigtail catheter and pullback was performed after left ventriculography. All catheter exchanges and advancements were performed over a guidewire. CLOSURE: At case completion the right radial sheath was removed and a Terumo radial band was applied with 13 ml of air. COMPLICATIONS: The patient tolerated the procedure well and there were no immediate complications. FINDINGS: HEMODYNAMICS: LVEDP 10 mm Hg No gradient on LV to aortic pullback. AO: 128/78 LEFT VENTRICULOGRAM: EF 55% Anterobasal: Normal. Anterolateral: Normal Apical: Normal Diaphragmatic: Normal Posterobasal: Normal CORONARY ANGIOGRAPHY: LM is a large caliber vessel with normal angiographic appearance. LAD is a moderate caliber vessel with mild luminal irregularities of up to 20%. LCx is a moderate caliber non-dominant vessel with normal angiographic appearance. OM1 is a moderate caliber vessel with normal angiographic appearance. RCA is a large caliber dominant vessel with normal angiographic appearance. RPDA and RPL are moderate caliber vessels with normal angiographic appearance. Conclusion 1. Normal left sided filling pressures. 2. Normal LV systolic function. EF 55% 3. No significant coronary disease. 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 Cuello is a 57 old [sex] who presented with [angina ] CONDITION AT DISCHARGE: Improved Discharge Medications Current Medications Nitroglycerin (Nitro-Bid Oint) 1 inch 1X ONCE TP ; Start 09/25/18 at 19:15; Stop 09/25/18 at 19:24; Status DC Nitroglycerin (Nitro-Bid Oint) 0.5 inch 1X ONCE TP Last administered on at 19:27; Start 09/25/18 at 19:30; Stop 09/25/18 at 19:31; Status DC Ondansetron HCl (Zofran) 4 mg PRN Q8HRS PRN IV NAUSEA/VOMITING; Start 09/25/18 at 20:30; Stop 09/26/18 at 20:29 Sodium Chloride 1,000 ml @ 125 mls/hr Q8H IV Last administered on 09/26/18at 08 :03; Start 09/25/18 at 20:16; Stop 09/26/18 at 20:15 Acetaminophen (Tylenol) 650 mg PRN Q4HRS PRN PO FEVER; Start 09/25/18 at 20:30 ; Stop 09/26/18 at 20:29 Nitroglycerin (Nitrostat) 0.4 mg PRN Q5MIN PRN SL CHEST PAIN; Start 09/25/18 at 20:30; Stop 09/25/18 at 22:36; Status DC Aspirin (Ecotrin) 81 mg DAILYWBKFT PO Last administered on 09/26/18at 08:03; Start 09/26/18 at 08:00 Atorvastatin Calcium (Lipitor) 40 mg HS PO ; Start 09/26/18 at 21:00 Levothyroxine Sodium (Synthroid) 75 mcg DAILY06 PO Last administered on at 06:07; Start 09/26/18 at 06:00 Nitroglycerin (Nitrostat) 0.4 mg PRN Q5MIN PRN SL CHEST PAIN Last administered on 09/26/18at 03:17; Start 09/25/18 at 22:30 Pantoprazole Sodium (Protonix) 40 mg DAILYAC PO Last administered on 09/26/18at 08:03; Start 09/26/18 at 07:30 Divalproex Sodium (Depakote) 500 mg TID PO Last administered on 09/26/18at 15:44 ; Start 09/25/18 at 23:00 Haloperidol Lactate (Haldol Inj) 75 mg Q4WK IM ; Start 10/23/18 at 09:00 Mirtazapine (Remeron) 45 mg QHS PO Last administered on 09/25/18at 23:10; Start 09/25/18 at 23:00 Montelukast Sodium (Singulair) 10 mg DAILY PO Last administered on 09/26/18at 08 :04; Start 09/26/18 at 09:00 Divalproex Sodium (Depakote) 500 mg 1X ONCE PO ; Start 09/25/18 at 22:45; Stop 09/25/18 at 22:46; Status UNV Mirtazapine (Remeron) 45 mg 1X ONCE PO ; Start 09/25/18 at 22:45; Stop at 22:46; Status UNV Atorvastatin Calcium (Lipitor) 40 mg 1X ONCE PO Last administered on at 23:09; Start 09/25/18 at 23:00; Stop 09/25/18 at 23:01; Status DC Benztropine Mesylate (Cogentin) 1 mg 1X ONCE PO Last administered on at 23:08; Start 09/25/18 at 23:00; Stop 09/25/18 at 23:01; Status DC Lidocaine HCl (Xylocaine-Mpf 1% 2ml Vial) 2 ml STK-MED ONCE .ROUTE ; Start 09/26 at 13:42; Stop 09/26/18 at 13:43; Status DC Heparin Sodium/ Sodium Chloride 1,000 ml @ As Directed STK-MED ONCE .ROUTE ; Start 09/26/18 at 13:42; Stop 09/26/18 at 13:43; Status DC Fentanyl Citrate (Fentanyl 2ml Vial) 100 mcg STK-MED ONCE .ROUTE ; Start at 13:47; Stop 09/26/18 at 13:48; Status DC Midazolam HCl (Versed) 2 mg STK-MED ONCE .ROUTE ; Start 09/26/18 at 13:47; Stop 09/26/18 at 13:48; Status DC Heparin Sodium (Porcine) (Heparin Sodium) 10,000 unit STK-MED ONCE .ROUTE ; Start 09/26/18 at 13:47; Stop 09/26/18 at 13:48; Status DC Verapamil HCl (Verapamil) 5 mg STK-MED ONCE .ROUTE ; Start 09/26/18 at 13:47; Stop 09/26/18 at 13:48; Status DC Nitroglycerin (Nitroglycerin) 200 mcg STK-MED ONCE .ROUTE ; Start 09/26/18 at 13 :47; Stop 09/26/18 at 13:48; Status DC Nitroglycerin (Nitroglycerin) 200 mcg 1X ONCE IART Last administered on at 14:40; Start 09/26/18 at 14:45; Stop 09/26/18 at 14:46; Status DC Verapamil HCl (Verapamil) 2.5 mg 1X ONCE IART Last administered on 09/26/18 14:39; Start 09/26/18 at 14:45; Stop 09/26/18 at 14:46; Status DC Heparin Sodium (Porcine) (Heparin Sodium) 2,500 unit 1X ONCE IART Last administered on 09/26/18 14:40; Start 09/26/18 at 14:45; Stop 09/26/18 at 14:46 ; Status DC Heparin Sodium/ Sodium Chloride (HEPARIN for ARTERIAL LINE FLUSH) 1,000 unit 1X ONCE IART Last administered on 09/26/18 14:39; Start 09/26/18 at 14:45; Stop 09/26/18 at 14:46; Status DC Heparin Sodium/ Sodium Chloride (HEPARIN for ARTERIAL LINE FLUSH) 1,000 unit 1X ONCE IART Last administered on 09/26/18 14:39; Start 09/26/18 at 14:45; Stop 09/26/18 at 14:46; Status DC Midazolam HCl (Versed) 2 mg 1X ONCE IV Last administered on 09/26/18 14:41; Start 09/26/18 at 14:45; Stop 09/26/18 at 14:46; Status DC Fentanyl Citrate (Fentanyl 2ml Vial) 100 mcg 1X ONCE IV Last administered on 14:41; Start 09/26/18 at 14:45; Stop 09/26/18 at 14:46; Status DC Iodixanol (Visipaque 320) 100 ml 1X ONCE IART Last administered on 09/26/18 14:39; Start 09/26/18 at 14:45; Stop 09/26/18 at 14:46; Status DC Lidocaine HCl (Xylocaine-Mpf 1% 2ml Vial) 2 ml 1X ONCE INJ Last administered on 09/26/18at 14:39; Start 09/26/18 at 14:45; Stop 09/26/18 at 14:46; Status DC Info (CONTRAST GIVEN -- Rx MONITORING) 1 each PRN DAILY PRN MC SEE COMMENTS; Start 09/26/18 at 14:45; Stop 09/28/18 at 14:44 Active Scripts Active Reported Mirtazapine 45 Mg Tablet 1 Tab PO QHS Levothyroxine Sodium 75 Mcg Tablet 1 Tab PO DAILY Haloperidol Lactate 5 Mg/1 Ml Syringe 75 Mg IM Q4WK Divalproex Sodium 500 Mg Tablet. 1 Tab PO TID Atorvastatin Calcium 40 Mg Tablet 1 Tab PO DAILY Montelukast Sodium Tablet (Montelukast Sodium) 10 Mg Tablet 1 Tab PO DAILY Protonix (Pantoprazole Sodium) 40 Mg Tablet.dr 40 Mg PO DAILY Nitrostat (Nitroglycerin) 0.4 Mg Tab.subl 0.4 Mg SL PRN Q5MIN PRN Aspir 81 (Aspirin) 81 Mg Tablet.dr 81 Tab PO DAILY [place] ([place]onide) 6.1 Gm Hfa.aer.ad 6.1 Gm IH Proair Hfa Inhaler (Albuterol Sulfate) 8.5 Gm Hfa.aer.ad 1 Puff INH PRN Q6HRS PRN Proair Hfa Inhaler (Albuterol Sulfate) 8.5 Gm Hfa.aer.ad 2 Puff IH PRN Q4-6HRS Vital Signs Vital Signs Date Time Temp Pulse Resp B/P (MAP) Pulse Ox O2 Delivery O2 Flow Rate FiO2 09/26/18 15:00 98.6 77 18 112/80 (91) 97 Room Air 98.6 09/26/18 14:52 4.0 Labs Laboratory Tests Test 09/25/18 18:40 09/26/18 00:15 09/26/18 06:30 09/26/18 12:15 White Blood Count 6.9 x10^3/uL (4.0-11.0) Red Blood Count 4.71 x10^6/uL (4.30-5.70) Hemoglobin 13.9 g/dL (13.0-17.5) Hematocrit 42.4 % (39.0-53.0) Mean Corpuscular Volume 90 fL (79-100) Mean Corpuscular Hemoglobin 30 pg (25-35) Mean Corpuscular Hemoglobin Concent 33 g/dL (31-37) Red Cell Distribution Width 14.9 % (11.5-14.5) Platelet Count 132 x10^3/uL (140-400) Neutrophils (%) (Auto) 62 % (31-73) Lymphocytes (%) (Auto) 28 % (24-48) Monocytes (%) (Auto) 8 % (0-9) Eosinophils (%) (Auto) 1 % (0-3) Basophils (%) (Auto) 1 % (0-3) Neutrophils # (Auto) 4.3 x10^3uL (1.8-7.7) Lymphocytes # (Auto) 1.9 x10^3/uL (1.0-4.8) Monocytes # (Auto) 0.6 x10^3/uL (0.0-1.1) Eosinophils # (Auto) 0.1 x10^3/uL (0.0-0.7) Basophils # (Auto) 0.0 x10^3/uL (0.0-0.2) Prothrombin Time 13.4 SEC (11.7-14.0) Prothromb Time International Ratio 1.1 (0.8-1.1) D-Dimer (Ginny) < 0.27 ug/mlFEU Sodium Level 139 mmol/L (136-145) 145 mmol/L (136-145) Potassium Level 4.7 mmol/L (3.5-5.1) 4.4 mmol/L (3.5-5.1) Chloride Level 103 mmol/L (98-107) 109 mmol/L (98-107) Carbon Dioxide Level 27 mmol/L (21-32) 25 mmol/L (21-32) Anion Gap 9 (6-14) 11 (6-14) Blood Urea Nitrogen 15 mg/dL (8-26) 11 mg/dL (8-26) Creatinine 0.8 mg/dL (0.7-1.3) 0.7 mg/dL (0.7-1.3) Estimated GFR (Cockcroft-Gault) 98.9 115.4 BUN/Creatinine Ratio 19 (6-20) Glucose Level 97 mg/dL (70-99) 101 mg/dL (70-99) Calcium Level 8.6 mg/dL (8.5-10.1) 8.7 mg/dL (8.5-10.1) Magnesium Level 1.7 mg/dL (1.8-2.4) 2.0 mg/dL (1.8-2.4) Total Bilirubin 0.2 mg/dL (0.2-1.0) Aspartate Amino Transf (AST/SGOT) 12 U/L (15-37) Alanine Aminotransferase (ALT/SGPT) 15 U/L (16-63) Alkaline Phosphatase 61 U/L (46-116) Troponin I Quantitative < 0.017 ng/mL (0.000-0.055) < 0.017 ng/mL (0.000-0.055) < 0.017 ng/mL (0.000-0.055) < 0.017 ng/mL (0.000-0.055) KW-Xba-A-Type Natriuretic Peptide 24 pg/mL (0-124) Total Protein 6.0 g/dL (6.4-8.2) Albumin 3.2 g/dL (3.4-5.0) Albumin/Globulin Ratio 1.1 (1.0-1.7) Lipase 135 U/L (73-393) Triglycerides Level 48 mg/dL (0-150) Cholesterol Level 135 mg/dL (0-200) LDL Cholesterol, Calculated 75 mg/dL (0-100) VLDL Cholesterol, Calculated 10 mg/dL (0-40) Non-HDL Cholesterol Calculated 85 mg/dL (0-129) HDL Cholesterol 50 mg/dL (40-60) Cholesterol/HDL Ratio 2.7 Laboratory Tests Test 09/25/18 18:40 09/26/18 00:15 09/26/18 06:30 09/26/18 12:15 White Blood Count 6.9 x10^3/uL (4.0-11.0) Red Blood Count 4.71 x10^6/uL (4.30-5.70) Hemoglobin 13.9 g/dL (13.0-17.5) Hematocrit 42.4 % (39.0-53.0) Mean Corpuscular Volume 90 fL (79-100) Mean Corpuscular Hemoglobin 30 pg (25-35) Mean Corpuscular Hemoglobin Concent 33 g/dL (31-37) Red Cell Distribution Width 14.9 % (11.5-14.5) Platelet Count 132 x10^3/uL (140-400) Neutrophils (%) (Auto) 62 % (31-73) Lymphocytes (%) (Auto) 28 % (24-48) Monocytes (%) (Auto) 8 % (0-9) Eosinophils (%) (Auto) 1 % (0-3) Basophils (%) (Auto) 1 % (0-3) Neutrophils # (Auto) 4.3 x10^3uL (1.8-7.7) Lymphocytes # (Auto) 1.9 x10^3/uL (1.0-4.8) Monocytes # (Auto) 0.6 x10^3/uL (0.0-1.1) Eosinophils # (Auto) 0.1 x10^3/uL (0.0-0.7) Basophils # (Auto) 0.0 x10^3/uL (0.0-0.2) Prothrombin Time 13.4 SEC (11.7-14.0) Prothromb Time International Ratio 1.1 (0.8-1.1) D-Dimer (Ginny) < 0.27 ug/mlFEU Sodium Level 139 mmol/L (136-145) 145 mmol/L (136-145) Potassium Level 4.7 mmol/L (3.5-5.1) 4.4 mmol/L (3.5-5.1) Chloride Level 103 mmol/L (98-107) 109 mmol/L (98-107) Carbon Dioxide Level 27 mmol/L (21-32) 25 mmol/L (21-32) Anion Gap 9 (6-14) 11 (6-14) Blood Urea Nitrogen 15 mg/dL (8-26) 11 mg/dL (8-26) Creatinine 0.8 mg/dL (0.7-1.3) 0.7 mg/dL (0.7-1.3) Estimated GFR (Cockcroft-Gault) 98.9 115.4 BUN/Creatinine Ratio 19 (6-20) Glucose Level 97 mg/dL (70-99) 101 mg/dL (70-99) Calcium Level 8.6 mg/dL (8.5-10.1) 8.7 mg/dL (8.5-10.1) Magnesium Level 1.7 mg/dL (1.8-2.4) 2.0 mg/dL (1.8-2.4) Total Bilirubin 0.2 mg/dL (0.2-1.0) Aspartate Amino Transf (AST/SGOT) 12 U/L (15-37) Alanine Aminotransferase (ALT/SGPT) 15 U/L (16-63) Alkaline Phosphatase 61 U/L (46-116) Troponin I Quantitative < 0.017 ng/mL (0.000-0.055) < 0.017 ng/mL (0.000-0.055) < 0.017 ng/mL (0.000-0.055) < 0.017 ng/mL (0.000-0.055) JA-Azf-W-Type Natriuretic Peptide 24 pg/mL (0-124) Total Protein 6.0 g/dL (6.4-8.2) Albumin 3.2 g/dL (3.4-5.0) Albumin/Globulin Ratio 1.1 (1.0-1.7) Lipase 135 U/L (73-393) Triglycerides Level 48 mg/dL (0-150) Cholesterol Level 135 mg/dL (0-200) LDL Cholesterol, Calculated 75 mg/dL (0-100) VLDL Cholesterol, Calculated 10 mg/dL (0-40) Non-HDL Cholesterol Calculated 85 mg/dL (0-129) HDL Cholesterol 50 mg/dL (40-60) Cholesterol/HDL Ratio 2.7 Allergies Allergies Coded Allergies Type Severity Reaction Last Updated Verified Penicillins Allergy Intermediate 08/18/15 Yes methadone Allergy Intermediate 08/18/15 Yes morphine Allergy Intermediate 08/18/15 Yes sulfamethoxazole Allergy Intermediate 08/18/15 Yes trimethadione Allergy Intermediate 08/18/15 Yes Disposition/Orders: Other (baxck to retirement) Patient Instructions d/c planning 37 min RODRICK BURLESON MD Sep 26, 2018 16:41
--- NOTE | 2018-09-26 16:44 | DISCH ---
DISCHARGE INSTRUCTIONS Condition on Discharge Condition on Discharge: Stable Activity After Discharge Activity Instructions for Disc: Activity as tolerated Lifting Instructions after Dis: No heavy lifting, No pulling or pushing Exercise Instruction after Dis: Walk 10 min, 3 x per day Weight Bearing Status after Di: As tolerated Diet after Discharge Diet after Discharge: Cardiac Checks after Discharge Checks after discharge: Check blood press - daily Contacting the [facility] after DC Call your doctor for: If your condition worsens RODRICK BURLESON MD Sep 26, 2018 16:44
[2018-09-26] MEDS ORDERED: ATORVASTATIN CALCIUM 40 MG TABLET. PO SCH (21:00)
[2018-10-23] MEDS ORDERED: HALOPERIDOL LACTATE 5 MG/ML VIAL. IM SCH (09:00)
== END 2018-09-26 19:50 | disposition short-term general hospital (02) ==
LOC: EEVIPCON 18:32 → ER 18:32 → 2 NORTH 19:46
PROVIDERS: ADMIT Internal Medicine; ATTEND Internal Medicine
DX: I25.119 Atherosclerotic heart disease of native coronary artery with unspecified angina pectoris (principal); E78.5 Hyperlipidemia, unspecified; I11.0 Hypertensive heart disease with heart failure; I50.9 Heart failure, unspecified; J44.9 Chronic obstructive pulmonary disease, unspecified; Z86.73 Personal history of transient ischemic attack (TIA), and cerebral infarction without residual deficits; F20.9 Schizophrenia, unspecified; I25.2 Old myocardial infarction; M19.90 Unspecified osteoarthritis, unspecified site; E03.9 Hypothyroidism, unspecified; Z82.49 Family history of ischemic heart disease and other diseases of the circulatory system; K21.9 Gastro-esophageal reflux disease without esophagitis; Z98.890 Other specified postprocedural states; Z90.49 Acquired absence of other specified parts of digestive tract
CPT/HCPCS: 36415; 71045; 80048; 80053; 80061; 83690; 83735; 83880; 84484; 85025; 85379; 85610; 93005; 93306; 93458; 96374; 96375; 99284; C1769; C1892; G0378; J1644; J2250; J3010; J3490; J7030; 99152; G0379; Q9967